=== PATIENT | female | born 1960 | race Caucasian/White ===

== ENCOUNTER 2023-09-01 13:14 | Outpatient (OUT) | payer BC, MEDICAID, SELFPAY ==
--- NOTE | 2023-09-01 13:18 | MM_ITS ---
Patient Name: АНДРЕЙ OSBORNE MR#: [id number] : 1960 Exam Date: 09/01/2023 Ordering Doctor: MRS. Blanca Bush NP RADIOLOGY REPORT PROCEDURE: MM TOMOSYNTHESIS SCREENING BI COMPARISON: MG MAMM RT DIAG FU, 04/11/2020. MG MAMM SCREEN 3D ALEXA CAD, 02/17/2022. INDICATIONS: Screening Calculator Name NCI Breast Cancer Risk Assessment Tool 5 Year Breast Cancer Risk 1.70% Lifetime Breast Cancer Risk 6.30% Personal Breast Cancer No Personal Ovarian Cancer No Treatments None Family Cancers Mother with liver cancer at age 82. LOCATION: [facility] BREAST COMPOSITION: Heterogeneously dense,which may obscure small masses. FINDINGS: DIAGNOSTIC CATEGORY 2--BENIGN FINDING. NO CHANGE FROM COMPARISON. Scattered benign-appearing calcifications are present. Scattered benign-appearing lymph nodes are present. RIGHT BREAST: No significant suspicious finding. Scattered benign-appearing nodules are present. LEFT BREAST: No significant suspicious finding. RECOMMENDATIONS: ROUTINE MAMMOGRAM AND CLINICAL EVALUATION IN 12 MONTHS. PLEASE NOTE: A NORMAL MAMMOGRAM DOES NOT EXCLUDE THE POSSIBILITY OF BREAST CANCER. A CLINICALLY SUSPICIOUS PALPABLE LUMP SHOULD BE BIOPSIED. Dictated by: James Friedman MD on 09/01/2023 at 14:16 Approved by: James Friedman MD on 09/01/2023 at 14:17
== END 2023-09-01 13:15 | disposition home or self-care (01) ==
LOC: MAMMO 13:14
PROVIDERS: PCP Internal Medicine; Visit Provider Nurse Practitioner Family
DX: Z12.31 Encounter for screening mammogram for malignant neoplasm of breast (principal); Z80.8 Family history of malignant neoplasm of other organs or systems
CPT/HCPCS: 77063; 77067

== ENCOUNTER 2024-01-04 12:44 | Outpatient (OUT) | payer MEDICARE, MEDICAID, SELFPAY ==
--- NOTE | 2024-01-04 13:11 | XR_ITS ---
[address] [address] Patient Name: АНДРЕЙ OSBORNE MRN: [id number] date: 1960 Sex: F Assigned Patient Location: [facility] Current Patient Location: Accession/Order Number: [id number] Exam Date: 01/04/2024 13:00 Report Date: 01/05/2024 10:09 At the request of: MONICA MOSS Procedure: XR DEXA axial skeleton EXAMINATION: XR DEXA axial skeleton HISTORY: Estrogen Deficiency E28.39 COMPARISON: No relevant comparison available. TECHNIQUE: Dual-energy X-ray absorptiometry (DXA) was performed. FINDINGS: SPINE ANALYSIS: Average bone mineral density is 1.167 g/cm2. T-score (standard deviation relative to young adult mean): -0.1 . HIP ANALYSIS: Lowest bone mineral density is within the right femoral neck, 0.962 g/cm2. T-score (standard deviation relative to young adult mean): -0.5 . XR/XR DEXA axial skeleton IMPRESSION: [employer] Classification: Normal - Low Fracture Risk FRAX: Electronically authenticated by: JUDY DAN Date: 01/05/2024 10:09
== END 2024-01-04 12:45 | disposition home or self-care (01) ==
LOC: RAD 12:44
PROVIDERS: PCP Internal Medicine; Visit Provider Internal Medicine
DX: E28.39 Other primary ovarian failure (principal)
CPT/HCPCS: 77080

== ENCOUNTER 2025-01-10 12:48 | Outpatient (OUT) | payer MEDICARE, MEDICAID, SELFPAY ==
--- NOTE | 2025-01-10 12:50 | MM_ITS ---
Patient Name: АНДРЕЙ OSBORNE MR#: [id number] : 1960 Exam Date: 01/10/2025 Ordering Doctor: DR MONICA MOSS M.D. RADIOLOGY REPORT PROCEDURE: MM TOMOSYNTHESIS SCREENING BI COMPARISON: MM TOMOSYNTHESIS SCREENING BI, 09/01/2023. MG MAMM SCREEN 3D ALEXA CAD, 02/17/2022. MG MAMM SCREEN ALEXA W CAD, 04/04/2020. INDICATIONS: Screening Calculator Name NCI Breast Cancer Risk Assessment Tool 5 Year Breast Cancer Risk 1.70% Lifetime Breast Cancer Risk 6.10% Personal Breast Cancer No Personal Ovarian Cancer No Treatments None Family Cancers Mother with liver cancer at age 82. LOCATION: [facility] BREAST COMPOSITION: There are scattered areas of fibroglandular density. FINDINGS: RIGHT BREAST: No significant suspicious finding. Benign-appearing lymph nodes are present. Similar focal asymmetries are present. Benign-appearing calcifications are present. LEFT BREAST: No significant suspicious finding. Benign-appearing lymph nodes are present. Similar focal asymmetries are present. Benign-appearing calcifications are present. DIAGNOSTIC CATEGORY 2--BENIGN FINDING: RECOMMENDATIONS: ROUTINE MAMMOGRAM AND CLINICAL EVALUATION IN 12 MONTHS. PLEASE NOTE: A NORMAL MAMMOGRAM DOES NOT EXCLUDE THE POSSIBILITY OF BREAST CANCER. A CLINICALLY SUSPICIOUS PALPABLE LUMP SHOULD BE BIOPSIED. Dictated by: Ramsey Alaniz MD on 01/10/2025 at 13:29 Approved by: Ramsey Alaniz MD on 01/10/2025 at 13:33
== END 2025-01-10 12:49 | disposition home or self-care (01) ==
LOC: MAMMO 12:48
PROVIDERS: PCP Internal Medicine; Visit Provider Internal Medicine
DX: Z12.31 Encounter for screening mammogram for malignant neoplasm of breast (principal); Z80.8 Family history of malignant neoplasm of other organs or systems
CPT/HCPCS: 77063; 77067

== ENCOUNTER 2025-02-20 14:34 | Emergency (ER) | payer MEDICARE, MEDICAID, SELFPAY ==
--- OUTSIDE RECORDS SUMMARY | 2024-09-12 09:00 | XMS_ITS ---
Author Organization [facility] es Address [address] [place] [address] Care Team Providers Care Cloth Washer Back Tender Name Role Phone Queta Davenport Primary Care Provider Nia Fontanez Unavailable [phone] REASON FOR VISIT SRP Encounters Encounter Location Date Provider Diagnosis [address] [place] [address] 09/12/2024 Nia Oliva Plan Of Treatment No Information Progress Notes * АНДРЕЙ OSBORNE ADOB:[birth year] (65 yo F)Acc No.[id number]:09/12/2024 Patient: Jennifer GORMAN АНДРЕЙ Dakotah Provider: Leander OLIVA DDS :1960 A ge:64 Y S ex:Female Date:09/12/2024 Address:[address] [place], [place] [id number] Pcp:Queta Davenport Subjective: * Chief Complaints: * 1 . SRP. * Medical History: Objective: * Vitals: Assessment: Plan: * Treatment: * Images: * Electronic signature of Rhea Oliva DDS on 02/20/2025 at 01:04 PM EDT Sign off status: Pending * Provider: Leander OLIVA DDS Date: 09/12/2024 Generated for Landoni ng/Fabridgerg/eTransmitting on: 02/20/2025 01:04 PM EDT
--- OUTSIDE RECORDS SUMMARY | 2024-10-17 08:15 | XMS_ITS ---
Author Organization [facility] es Address [address] [place] [address] Care Team Providers Care Principal Java Developer Name Role Phone Queta Davenport Primary Care Provider Nia Fontanez Unavailable Yue Zuñiga Unavailable [phone] REASON FOR VISIT DENTAL @ 1:00 Encounters Encounter Location Date Provider [facility] [address] [place] [address] 10/17/2024 Yue Zuñiga Plan Of Treatment No Information Progress Notes * АНДРЕЙ OSBORNE ADOB:[birth year] (65 yo F)Acc No.[id number]:10/17/2024 Patient: АНДРЕЙ ONEILL Provider: Dakotah Hinson :1960 A ge:64 Y S ex:Female Date:10/17/2024 Address:[address] [place], [place] [id number] Pcp:Queta Davenport Subjective: * Chief Complaints: * 1 . DENTAL @ 1:00. * Medical History: Objective: * Vitals: Assessment: Plan: * Treatment: * Images: * Electronic signature of Rob Zuñiga CNP on 02/20/2025 at 01:04 PM EDT Sign off status: Pending * Provider: Dakotah Hinson Date: 10/17/2024 Generated for Landoni eileen/Daljit/eTransmjuan on: 0 02/20/2025 01:04 PM EDT
--- OUTSIDE RECORDS SUMMARY | 2024-10-17 09:00 | XMS_ITS ---
Author Organization [facility] es Address [address] [place] [address] Care Team Providers Care Sports Medicine Physician Name Role Phone Queta Davenport Primary Care Provider [phone] Nia Fontanez Unavailable REASON FOR VISIT FILLING HAS TRANSPORTATION Encounters Encounter Location Date Provider Diagnosis [place] [address] [place] [address] 10/17/2024 Queta Davenport Plan Of Treatment No Information Progress Notes * АНДРЕЙ OSBORNE ADOB:[birth year] (65 yo F)Acc No.[id number]:10/17/2024 Patient: АНДРЕЙ ONEILL Provider: Dakotah Davenport DDS :1960 A ge:64 Y S ex:Female Date:10/17/2024 Address:[address] [place], [place] [phone] Subjective: * Chief Complaints: * 1 . FILLING HAS TRANSPORTATION. * Medical History: Objective: * Vitals: Assessment: Plan: * Treatment: * Images: * Electronic signature of Mariia Davenport DDS on 02/20/2025 at 01:04 PM EDT Sign off status: Pending * Provider: Dakotah Davenport DDS Date: 10/17/2024 Generated for Marybel arellano/Daljit/Blake on: 02/20/2025 01:04 PM EDT
[2025-02-20] VITALS (22 sets, daily range): BP systolic 114–167; BP diastolic 72–90; PULSE 61–81; TEMP 36.6; O2SAT 91–98; BMI 39.2
--- OUTSIDE RECORDS SUMMARY | 2025-02-20 13:15 | XMS_ITS | Encounter Summary ---
Author Organization [facility] Address [address] [place] [address] Care Team Providers Care Landscaping Crew Leader Name Role Phone Art López MD Primary Care Provider [phone] Art López MD Unavailable [phone] Encounter Details Date Type Department Care Team (Late st Contact Info) Description 02/20/2025 1:15 PM EDT [facility] [address] [facility] [address] [place] [phone] Art López MD [address] [facility] [address] [place], [place] [id number] Acute intractable headache, unspecified headache type (Primary Dx); Chest discomfort; Type 2 diabetes mellitus with hyperglycemia, with long-term current use of insulin (HCC); Diabetic polyneuropathy associated with type 2 diabetes mellitus (HCC); Hepatic steatosis Social History Tobacco Use Types Packs/Day Years Used Date Smoking Tobacco: Never Smokeless Tobacco: Never Tobacco Cessation:Counseling Given: Yes Alcohol Use Standard Drinks/Week Comments Yes 0 (1 standard drink = 0.6 oz pur e alcohol) 1-2 drinks, 2-3 times a week. PHQ-2 Answer Date Recorded Patient Health Questionnaire-2 Score 0 02/20/2025 Comments Unknown Sex and Gender Information Value Date Recorded Sex Assigned at Not on file Legal Sex Female 8:27 PM EDT Gender Identity Not on file Sexual Orientation Not on file documented as of this encounter Last Filed Vital Signs Vital Sign Reading Time Taken Comments Blood Pressure 136/78 02/20/2025 1:21 PM EDT Pulse 66 02/20/2025 1:21 PM EDT Temperature - - Respiratory Rate 16 02/20/2025 1:21 PM EDT Oxygen Saturation 97% 02/20/2025 1:21 PM EDT Inhaled Oxygen Concentration - - Weight 114 kg (252 lb) 02/20/2025 1:21 PM EDT Height 170.2 cm (5' 7 ) 02/20/2025 1:21 PM EDT Body Mass Index 39.47 02/20/2025 1:21 PM EDT documented in this encounter Functional Status * Over the past 2 weeks, how often have you been bothered by any of the following problems? Question Answer Date of Assessment Author Little interest or pleasure in doing things Not at all 02/20/2025 1:15 PM EDT VIRY TAN Feeling down, depressed, or hopeless Not at all 10/2024 1:15 PM EDT VIRY TAN Patient Health Questionnaire-2 Score 0 10/2024 1:15 PM EDT VIRY TAN documented as of this encounter Progress Notes * Art López MD - 02/20/2025 1:15 PM EDT Subjective Patient ID: Jaclyn Lee is a 65 y.o. female who presents for headaches. Jaclyn presents today for a bad headache that has been going for over a week. She has tried OTC tylenol and Motrin. She has vision problems as well. She feels like the pressure in her head is going to blow. Over the past 2 weeks, how often have you been bothered by any of the following problems? Little interest or pleasure in doing things: Not at all Feeling down, depressed, or hopeless: Not at all Patient Health Questionnaire-2 Score: 0 Current Outpatient Medications on File Prior to Visit Medication Sig Dispense Refill aspirin (Aspirin Low Dose) 81 MG EC tablet TAKE 1 TABLET BY MOUTH EVERY DAY 100 tablet 3 atorvastatin (Lipitor) 40 MG tablet TAKE 1 TABLET BY MOUTH EVERY DAY FOR 100 DAYS 100 tablet 4 Blood Glucose Monitoring Suppl (ONE TOUCH ULTRA 2) w/Device kit USE TO TEST ONCE DAILY cholecalciferol (Vitamin D-3) 25 MCG (1000 UT) tablet Take 1,000 Units by mouth 1 (one) time each day at the same time. empagliflozin (Jardiance) 25 MG TAKE 1 TABLET BY MOUTH EVERY DAY 100 tablet 3 famotidine (Pepcid) 20 MG tablet TAKE 1 TABLET (20 MG) BY MOUTH IN THE MORNING AND BEFORE BEDTIME 180 tablet 11 insulin glargine (Toujeo SoloStar) 300 UNIT/ML injection INJECT 36 UNITS SUBCUTANEOUSLY ONCE DAILY AT THE SAME TIME 9 mL 4 insulin pen needle (BD Pen Needle Ermelinda U/F) 32G x 4 mm misc USE TO INJECT TWICE A DAY 200 each 3 ketoconazole (NIZOral) 200 MG tablet Take 1 tablet (200 mg) by mouth Daily 7 tablet 3 Lancets (OneTouch Delica Plus Loqdan10T) misc DIRECTED DAILY 30 DAYS metoprolol succinate XL (Toprol-XL) 50 MG 24 hr tablet TAKE 1 TABLET BY MOUTH EVERY DAY 100 tablet 3 Multiple Vitamin (Multivitamin Adult) tablet as directed Orally Nptgwirulq-ldVGKEXopy-CDYN 40-5-25 MG tablet TAKE 1 TABLET BY MOUTH EVERY DAY 100 tablet 3 omeprazole (PriLOSEC) [address] capsule TAKE 1 CAPSULE BY MOUTH 30 MINUTES BEFORE MORNING MEAL 100 capsule 3 Cerona NetworksTouch Ultra test strip USE TO TEST ONCE DAILY 100 strip 2 Tirzepatide (Mounjaro) 7.5 MG/0.5ML solution auto-injector Inject 7.5 mg under the skin 1 (one) time per week 2 mL 11 No current facility-administered medications on file prior to visit. I have reviewed and reconciled the history and medication list with the patient today. Allergies Allergen Reactions Gabapentin Unknown Metformin Hcl Other Reaction(s): Nightmares Ropinirole Other Reaction(s): Unknown Social History Tobacco Use Smoking status: Never Smokeless tobacco: Never Vaping Use Vaping status: Never Used Substance Use Topics Alcohol use: Yes Comment: 1-2 drinks, 2-3 times a week. Drug use: Never Family History Problem Relation Name Age of Onset Hypertension Mother Heart disease Mother Stroke Mother Diabetes Father Hypertension Father Heart disease Father Past Medical History: Diagnosis Date Diabetes (HCC) GERD (gastroesophageal reflux disease) HTN (hypertension) Stroke (HCC) Past Surgical History: Procedure Laterality Date HYSTERECTOMY LEG SURGERY Left 02/14/2021 TOE AMPUTATION Left 05/05/2020 2nd and 3rd TONSILLECTOMY TOTAL KNEE ARTHROPLASTY Right 11/16/2018 Visit Vitals BP 136/78 Pulse 66 Resp 16 Ht 5' 7 Wt 252 lb SpO2 97% BMI 39.47 kg/m?? Smoking Status Never BSA 2.32 m?? Review of Systems Objective Physical Exam Constitutional: Appearance: Normal appearance. HENT: Head: Normocephalic and atraumatic. Cardiovascular: Rate and Rhythm: Normal rate and regular rhythm. Heart sounds: Normal heart sounds. No murmur heard. Pulmonary: Effort: Pulmonary effort is normal. Breath sounds: Normal breath sounds. No wheezing, rhonchi or rales. Abdominal: General: Abdomen is flat. Bowel sounds are normal. There is no distension. Tenderness: There is no abdominal tenderness. Musculoskeletal: Right lower leg: No edema. Left lower leg: No edema. Neurological: General: No focal deficit present. Mental Status: She is alert and oriented to person, place, and time. Cranial Nerves: Cranial nerves 2-12 are intact. Sensory: Sensation is intact. Motor: Motor function is intact. Gait: Gait is intact. Comments: Baseline head and neck tremor, unchanged Psychiatric: Mood and Affect: Mood normal. Thought Content: Thought content normal. Documentation on 01/24/2025 Component Date Value Ref Range Status RESULTS 01/23/2025 ndr Final Office Visit on 12/29/2024 Component Date Value Ref Range Status CREATININE, RANDOM URINE 01/04/2025 54 20 - 275 mg/dL Final ALBUMIN, URINE 01/04/2025 <0.2 See Note: mg/dL Final Comment: Reference Range: Reference Range Not established ALBUMIN/CREATININE RATIO, RANDOM U* 01/04/2025 NOTE <30 mg/g creat Final Comment: NOTE: The urine albumin value is less than 0.2 mg/dL therefore we are unable to calculate excretion and/or creatinine ratio. The ADA defines abnormalities in albumin excretion as follows: Albuminuria Category Result (mg/g creatinine) Normal to Mildly increased <30 Moderately increased 30-299 Severely increased > OR = 300 The ADA recommends that at least two of three specimens collected within a 3-6 month period be abnormal before considering a patient to be within a diagnostic category. WHITE BLOOD CELL COUNT 01/04/2025 5.4 3.8 - 10.8 Thousand/uL Final RED BLOOD CELL COUNT 01/04/2025 4.23 3.80 - 5.10 Million/uL Final HEMOGLOBIN 01/04/2025 14.4 11.7 - 15.5 g/dL Final HEMATOCRIT 01/04/2025 44.2 35.0 - 45.0 % Final MCV 01/04/2025 104.5 (H) 80.0 - 100.0 fL Final MCH 01/04/2025 34.0 (H) 27.0 - 33.0 pg Final MCHC 01/04/2025 32.6 32.0 - 36.0 g/dL Final Comment: For adults, a slight decrease in the calculated MCHC value (in the range of 30 to 32 g/dL) is most likely not clinically significant; however, it should be interpreted with caution in correlation with other red cell parameters and the patient's clinical condition. RDW 01/04/2025 12.2 11.0 - 15.0 % Final PLATELET COUNT 01/04/2025 174 140 - 400 Thousand/uL Final MPV 01/04/2025 9.7 7.5 - 12.5 fL Final ABSOLUTE NEUTROPHILS 01/04/2025 2,608 1,500 - 7,800 cells/uL Final ABSOLUTE LYMPHOCYTES 01/04/2025 1,825 850 - 3,900 cells/uL Final ABSOLUTE MONOCYTES 01/04/2025 697 200 - 950 cells/uL Final ABSOLUTE EOSINOPHILS 01/04/2025 238 15 - 500 cells/uL Final ABSOLUTE BASOPHILS 01/04/2025 32 0 - 200 cells/uL Final NEUTROPHILS 01/04/2025 48.3 % Final LYMPHOCYTES 01/04/2025 33.8 % Final MONOCYTES 01/04/2025 12.9 % Final EOSINOPHILS 01/04/2025 4.4 % Final BASOPHILS 01/04/2025 0.6 % Final CHOLESTEROL, TOTAL 01/04/2025 144 <200 mg/dL Final HDL CHOLESTEROL 01/04/2025 41 (L) > OR = 50 mg/dL Final TRIGLYCERIDES 01/04/2025 147 <150 mg/dL Final LDL CHOLESTEROL 01/04/2025 79 mg/dL (calc) Final Comment: Reference range: <100 Desirable range <100 mg/dL for primary prevention; <70 mg/dL for patients with CHD or diabetic patients with > or = 2 CHD risk factors. LDL-C is now calculated using the Johnnie-Abel calculation, which is a validated novel method providing better accuracy than the Friedewald equation in the estimation of LDL-C. Johnnie REYNOSO et al. JEAN-PIERRE. 2013;310(19): 1302-5672 (http://education.Evomail.com/faq/BLZ138) CHOL/HDLC RATIO 01/04/2025 3.5 <5.0 (calc) Final NON HDL CHOLESTEROL 01/04/2025 103 <130 mg/dL (calc) Final Comment: For patients with diabetes plus 1 major ASCVD risk factor, treating to a non-HDL-C goal of <100 mg/dL (LDL-C of <70 mg/dL) is considered a therapeutic option. Glucose 01/04/2025 155 (H) 65 - 99 mg/dL Final Comment: Fasting reference interval For someone without known diabetes, a glucose value >125 mg/dL indicates that they may have diabetes and this should be confirmed with a follow-up test. BUN 01/04/2025 25 7 - 25 mg/dL Final Creatinine 01/04/2025 0.76 0.50 - 1.05 mg/dL Final EGFR 01/04/2025 86 > OR = 60 mL/min/1.73m2 Final BUN/CREATININE RATIO 01/04/2025 SEE NOTE: 6 - (calc) Final Comment: Not Reported: BUN and Creatinine are within reference range. Sodium 01/04/2025 138 135 - 146 mmol/L Final Potassium, Bld 01/04/2025 4.0 3.5 - 5.3 mmol/L Final Chloride 01/04/2025 99 98 - 110 mmol/L Final Carbon Dioxide 01/04/2025 29 20 - 32 mmol/L Final Calcium 01/04/2025 11.4 (H) 8.6 - 10.4 mg/dL Final PROTEIN, TOTAL 01/04/2025 7.8 6.1 - 8.1 g/dL Final ALBUMIN 01/04/2025 4.8 3.6 - 5.1 g/dL Final GLOBULIN 01/04/2025 3.0 1.9 - 3.7 g/dL (calc) Final ALBUMIN/GLOBULIN RATIO 01/04/2025 1.6 1.0 - 2.5 (calc) Final BILIRUBIN, TOTAL 01/04/2025 0.6 0.2 - 1.2 mg/dL Final ALKALINE PHOSPHATASE 01/04/2025 81 37 - 153 U/L Final AST 01/04/2025 42 (H) 10 - 35 U/L Final ALT 01/04/2025 54 (H) 6 - 29 U/L Final TSH W/REFLEX TO FT4 01/04/2025 2.37 0.40 - 4.50 mIU/L Final Hemoglobin A1C 12/29/2024 6.2 Final Assessment/Plan Diagnoses and all orders for this visit: Acute intractable headache, unspecified headache type - Of 1 week duration, 04/28 . No prior history of same. Also reports visual changes. - Patient was sent to the ER for further evaluation and treatment. The ER was called with a report of patient's condition and history. Medical records will be sent as well. Chest discomfort - EKG was essentially normal Type 2 diabetes mellitus with hyperglycemia, with long-term current use of insulin (HCC) Diabetic polyneuropathy associated with type 2 diabetes mellitus (HCC) Hepatic steatosis Follow up in about 1 week (around 02/27/2025). documented in this encounter Plan of Treatment Upcoming Encounters Date Type Department Care Team (Late st Contact Info) Description 03/06/2025 1:00 PM EDT Clinical Support [facility] [place] [facility] [address] [facility] [address] [place] [phone] Aide Arita, [facility] [address] [facility] [place] [address] 03/08/2025 1:10 PM EDT Office Visit [facility] [place] [facility] [address] [facility] [address] [place] [address] Svetlana De Luna MD [address] [facility] [address] [place] [address] 04/03/2025 11:30 AM EDT Office Visit [facility] [place] [facility] [address] [facility] [address] [place] [address] Art López MD [address] [facility] [address] [place] [address] documented as of this encounter Visit Diagnoses Diagnosis Acute intractable headache, unspecified headache type- Primary Chest discomfort Other chest pain Type 2 diabetes mellitus with hyperglycemia, with long-term current use of insulin (HCC) Diabetic polyneuropathy associated with type 2 diabetes mellitus (HCC) Hepatic steatosis Other chronic nonalcoholic liver disease documented in this encounter Care Teams Landscaping Crew Leader Relationship Specialty Start Date End Date Art López MD [address] [facility] [address] [place] [address] PCP - General Internal Medicine 02/18/23 Art López MD [address] [facility] [address] [place] [address] PCP - Clemencia SHRESTHA 03/20/23 documented as of this encounter
--- OUTSIDE RECORDS SUMMARY | 2025-02-20 14:41 | XMS_ITS | Encounter Summary ---
Author Organization [facility] Address [address] [place] [address] Care Team Providers Care Creel Hand Name Role Phone Art López MD Unavailable [phone] Art López MD Primary Care Provider [phone] Art López MD Unavailable [phone] Encounter Details Date Type Department Care Team (Late Contact Info) Description 09/01/2023 Clinisync Result Encounter [facility] External Department Unsolicited Blanca Bush, HOT MILL OBSERVER [address] [place] [address] Social History Tobacco Use Types Packs/Day Years Used Date Smoking Tobacco: Never Smokeless Tobacco: Never Alcohol Use Standard Drinks/Week Comments Yes 0 (1 standard drink = 0.6 oz pur e alcohol) 1-2 drinks, 2-3 times a week. Comments Unknown Sex and Gender Information Value Date Recorded Sex Assigned at Not on file Legal Sex Female 8:27 PM EDT Gender Identity Not on file Sexual Orientation Not on file documented as of this encounter Plan of Treatment Upcoming Encounters Date Type Department Care Team (Late Contact Info) Description 03/06/2025 1:00 PM EDT Clinical Support [facility] [place] [facility] [address] [place] [address] Aide Arita, [facility] [address] [place] [address] 03/08/2025 1:10 PM EDT Office Visit [facility] [place] [facility] [address] [place] [address] Svetlana De Luna MD [address] [place] [address] 04/03/2025 11:30 AM EDT Office Visit [facility] [place] [facility]amp 112 [facility] 110 [place] [address] Art López MD 112 [facility] [address] [place] [address] documented as of this encounter Procedures Procedure Name Priority Date/Time Associated Diagnosis Comments MM TOMOSYNTHESIS SCREENING BI 09/01/2023 2:18 PM EST documented in this encounter Results * MM TOMOSYNTHESIS SCREENING BI (09/01/2023 2:18 PM EST) Anatomical Region Laterality Modality Other 09/01/2023 2:18 PM EST Narrative 09/01/2023 2:19 [place] [address] Mammography Report Signed Patient: Андрей Osborne MR#: [id number] : 1960 Acct:[id number] Age/Sex: 63 / F ADM Date: 09/01/23 Loc: MAMMO Attending Dr: Blanca Bush NP Ordering Physician: Blanca Bush NP Results: Date of Service: 09/01/23 Follow Up: Procedure(s): MM tomosynthesis screening BI Accession Number(s): [id number] cc: ART LÓPEZ ; Blanca Bush NP Patient Name: АНДРЕЙ OSBORNE MR#: [id number] : 1960 Exam Date: 09/01/2023 Ordering Doctor: MRS. Blanca Bush HOT MILL OBSERVER RADIOLOGY REPORT PROCEDURE: MM TOMOSYNTHESIS SCREENING BI COMPARISON: MG MAMM RT DIAG FU, 04/11/2020. MG MAMM SCREEN 3D ALEXA CAD, 02/17/2022. INDICATIONS: Screening Calculator Name NCI Breast Cancer Risk Assessment Tool 5 Year Breast Cancer Risk 1.70% Lifetime Breast Cancer Risk 6.30% Personal Breast Cancer No Personal Ovarian Cancer No Treatments None Family Cancers Mother with liver cancer at age 82. LOCATION: [facility] BREAST COMPOSITION: Heterogeneously dense,which may obscure small masses. FINDINGS: DIAGNOSTIC CATEGORY 2--BENIGN FINDING. NO CHANGE FROM COMPARISON. Scattered benign-appearing calcifications are present. Scattered benign-appearing lymph nodes are present. RIGHT BREAST: No significant suspicious finding. Scattered benign-appearing nodules are present. LEFT BREAST: No significant suspicious finding. RECOMMENDATIONS: ROUTINE MAMMOGRAM AND CLINICAL EVALUATION IN 12 MONTHS. PLEASE NOTE: A NORMAL MAMMOGRAM DOES NOT EXCLUDE THE POSSIBILITY OF BREAST CANCER. A CLINICALLY SUSPICIOUS PALPABLE LUMP SHOULD BE BIOPSIED. Dictated by: James Friedman MD on 09/01/2023 at 14:16 Approved by: James Friedman MD on 09/01/2023 at 14:17 Dictated By: James Friedman M.D. Signed By: 09/01/23 1419 DD/ 1418 TD/TT: Assistant Commissioner: Procedure Note Radiology, Radiologist, - 09/01/2023 [place] [address] Mammography Report Signed Patient: Андрей Osborne [facility]#: [id number] : 1960cct:[id number] Age/Sex: 63 / FADM Date: 09/01/23 Loc: MAMMO Attending Dr: Blanca Bush NP Ordering Physician: Blanca Bush NPResults: Date of Service: 09/01/23Follow Up: Procedure(s): MM tomosynthesis screening BI Accession Number(s): [id number] cc: ART LÓPEZ ; Blanca Bush NP Patient Name: АНДРЕЙ OSBORNE MR#: [id number] : 1960 Exam Date: 09/01/2023 Ordering Doctor: MRS. Blanca Bush NP RADIOLOGY REPORT PROCEDURE: MM TOMOSYNTHESIS SCREENING BI COMPARISON: MG MAMM RT DIAG FU, 04/11/2020. MG MAMM SCREEN 3D ALEXA CAD, 02/17/2022. INDICATIONS: Screening Calculator Name NCI Breast Cancer Risk Assessment Tool 5 Year Breast Cancer Risk 1.70% Lifetime Breast Cancer Risk 6.30% Personal Breast Cancer No Personal Ovarian Cancer No Treatments None Family Cancers Mother with liver cancer at age 82. LOCATION: [facility] BREAST COMPOSITION: Heterogeneously dense,which may obscure smallmasses. FINDINGS: DIAGNOSTIC CATEGORY 2--BENIGN FINDING. NO CHANGE FROM COMPARISON.Scattered benign-appearing calcifications are present. Scattered benign-appearinglymph nodes are present. RIGHT BREAST: No significant suspicious finding. Scatteredbenign-appearing nodules are present. LEFT BREAST: No significant suspicious finding. RECOMMENDATIONS: ROUTINE MAMMOGRAM AND CLINICAL EVALUATION IN 12 MONTHS. PLEASE NOTE: A NORMAL MAMMOGRAM DOES NOT EXCLUDE THE POSSIBILITY OFBREAST CANCER. A CLINICALLY SUSPICIOUS PALPABLE LUMP SHOULD BE BIOPSIED. Dictated by: James Friedman MD on 09/01/2023 at 14:16 Approved by: James Friedman MD on 09/01/2023 at 14:17 Dictated By: James Friedman M.D. Signed By:09/01/23 1419 DD/ 1418 TD/TT: Assistant Commissioner: Blanca Bush HOT MILL OBSERVER [facility] Final Result documented in this encounter Visit Diagnoses Not on filedocumented in this encounter Care Teams Creel Hand Relationship Specialty Start Date End Date Art López MD [address] [facility] 110 [place] [address] PCP - FFS [facility] 10/18/22 10/18/23 Art López MD [address] [facility] 110 [place] [address] PCP - General Internal Medicine 02/18/23 Art López MD [address] [facility] 110 [place] [address] PCP - Clemencia SHRESTHA 03/20/23 documented as of this encounter
--- OUTSIDE RECORDS SUMMARY | 2025-02-20 14:41 | XMS_ITS | Encounter Summary ---
Author Organization [facility] Address [address] [facility] [place] [address] Care Team Providers Care Ocularist Name Role Phone Art López MD Primary Care Provider [phone] Art López MD Unavailable [phone] Encounter Details Date Type Department Care Team ([facility] Contact Info) Description 12/30/2024 Abstract [facility] [place] [facility] [address] [facility] 110 [place] [address] Art López MD [address] [facility] 110 [place], [place] [address] Social History Tobacco Use Types Packs/Day Years Used Date Smoking Tobacco: Never Smokeless Tobacco: Never Alcohol Use Standard Drinks/Week Comments Yes 0 (1 standard drink = 0.6 oz pur e alcohol) 1-2 drinks, 2-3 times a week. PHQ-2 Answer Date Recorded Patient Health Questionnaire-2 Score 0 12/29/2024 Comments Unknown Sex and Gender Information Value Date Recorded Sex Assigned at Not on file Legal Sex Female 8:27 PM EDT Gender Identity Not on file Sexual Orientation Not on file documented as of this encounter Plan of Treatment Upcoming Encounters Date Type Department Care Team (Late Contact Info) Description 03/06/2025 1:00 PM EDT Clinical Support [facility] [address] [place] [place] [address] Aide Arita, [facility] [address] [place] [address] 03/08/2025 1:10 PM EDT Office Visit [facility] [address] [place] [address] Svetlana De Luna MD [address] [facility] 130 [place] [address] 04/03/2025 11:30 AM EDT Office Visit [facility] [place] Raissa [address] [facility] 110 [place] [address] Art López MD [address] [facility] [address] [place] [address] documented as of this encounter Visit Diagnoses Not on filedocumented in this encounter Care Teams Ocularist Relationship Specialty Start Date End Date Art López MD [address] [facility] 110 [place] [address] PCP - General Internal Medicine 02/18/23 Art López MD [address] [facility] [address] [place] [address] PCP - Clemencia SHRESTHA 03/20/23 documented as of this encounter
--- OUTSIDE RECORDS SUMMARY | 2025-02-20 14:41 | XMS_ITS | Encounter Summary ---
Author Organization [facility] Address [address] [facility] [address] Care Team Providers Care Post Form Remover Name Role Phone Art López MD Primary Care Provider [phone] Art López MD Unavailable [phone] Encounter Details Date Type Department Care Team ([facility] Contact Info) Description 12/01/2023 Abstract [facility] [place] [facility] [address] [facility] 110 [place] [address] Art López MD [address] [facility] 110 [place], [place] [phone] Social History Tobacco Use Types Packs/Day Years Used Date Smoking Tobacco: Never Smokeless Tobacco: Never Alcohol Use Standard Drinks/Week Comments Yes 0 (1 standard drink = 0.6 oz pur e alcohol) 1-2 drinks, 2-3 times a week. PHQ-2 Answer Date Recorded Patient Health Questionnaire-2 Score 0 11/27/2023 Comments Unknown Sex and Gender Information Value [...] Son Audiology [address] [place] [address] Aide Arita, [facility] [address] [place] [address] 03/08/2025 1:10 PM EDT Office Visit [facility] [address] [place] [address] Svetlana De Luna MD [address] [facility] [address] [place] [address] 04/03/2025 11:30 AM EDT Office Visit [facility] [place] Raissa [address] [facility] [address] [place] [address] Art López MD [address] [facility] [address] [place] [address] documented as of this encounter Visit Diagnoses Not on filedocumented in this encounter Care Teams Post Form Remover Relationship Specialty Start Date End Date Art López MD [address] [facility] 110 [place] [address] PCP - General Internal Medicine 02/18/23 Art López MD [address] [facility] [address] [place] [address] PCP - Clemencia SHRESTHA 03/20/23 documented as of this encounter
--- OUTSIDE RECORDS SUMMARY | 2025-02-20 14:41 | XMS_ITS | Encounter Summary ---
Author Organization [facility] Address [address] [place] [address] Care Team Providers Care Field Tech Name Role Phone Art López MD Unavailable [phone] Art López MD Primary Care Provider [phone] Art López MD Unavailable [phone] Encounter Details Date Type Department Care Team ([facility] Contact Info) Description 04/30/2023 Abstract [facility] [place] [facility] [address] [place] [address] Blanca Bush, SUPPORT ENGINEER [address] [place], [place] [address] Social History Tobacco Use Types Packs/Day Years Used Date Smoking Tobacco: Never Smokeless Tobacco: Never Tobacco Cessation:Counseling Given: Not Answered Alcohol Use Standard Drinks/Week Comments Yes 0 [...] Upcoming Encounters Date Type Department Care Team ([facility] Contact Info) Description 03/06/2025 1:00 PM EDT Clinical Support [facility] [place] [facility] [address] [place] [address] Aide Arita, [facility] [address] [place] [address] 03/08/2025 1:10 PM EDT Office Visit [facility] [place] [facility] [address] [place] [address] Svetlana De Luna MD [address] [place] [address] 04/03/2025 11:30 AM EDT Office Visit [facility] [place] Haji [address] [place] [address] Art López MD [address] [place] [address] documented as of this encounter Visit Diagnoses Not on filedocumented in this encounter Care Teams Field Tech Relationship Specialty Start Date End Date Art López MD [address] [place] [address] PCP - FFS [facility] 10/18/22 10/18/23 Art López MD [address] [place] [address] PCP - General Internal Medicine 02/18/23 Art López MD [address] [place] [address] PCP - Clemencia SHRESTHA 03/20/23 documented as of this encounter
--- OUTSIDE RECORDS SUMMARY | 2025-02-20 14:41 | XMS_ITS | Encounter Summary ---
Author Organization [facility] Address [address] [facility] [place] [address] Care Team Providers Care Web Art Director Name Role Phone Art López MD Primary Care Provider [phone] Art López MD Unavailable [phone] Encounter Details Date Type Department Care Team ([facility] Contact Info) Description 12/01/2023 Abstract [facility] [place] [facility] [address] [facility] 110 [place] [address] Art López MD [address] [facility] 110 [place], [place] [address] Social History Tobacco Use Types Packs/Day Years [...] Son Audiology [address] [place] [address] Aide Arita, [facility] [address] [place] [address] 03/08/2025 1:10 PM EDT Office Visit [facility] [address] [place] [address] Svetlana De Luna MD [address] [facility] 130 [place] [address] 04/03/2025 11:30 AM EDT Office Visit [facility] [place] Raissa [address] [facility] 110 [place] [address] Art López MD [address] [facility] 110 [place] [address] documented as of this encounter Visit Diagnoses Not on filedocumented in this encounter Care Teams Web Art Director Relationship Specialty Start Date End Date Art López MD [address] [facility] 110 [place] [address] PCP - General Internal Medicine 02/18/23 Art López MD [address] [facility] 110 [place] [address] PCP - Clemencia SHRESTHA 03/20/23 documented as of this encounter
--- OUTSIDE RECORDS SUMMARY | 2025-02-20 14:41 | XMS_ITS | Patient Health Record ---
Author Organization [facility] es Address [address] [place] [address] Care Team Providers Care Truer Pinion And Wheel Name Role Phone Queta Davenport Primary Care Provider Nia Fontanez Unavailable [phone] Yue Zuñiga Unavailable [phone] Aubrie Dubose Unavailable [phone] Reason For Referral No Information Encounters Encounter Location Date Provider Diagnosis [facility] [place] Services [address] [place] [address] 05/18/2024 Queta Davenport [address] [place] [address] 03/03/2024 Queta Davenport Encounter for dental examination and cleaning with abnormal findings Z01.21 ; Disturbances in tooth eruption K00.6 ; Other dental procedure status Z98.818 ; Dental caries on pit and fissure surface penetrating into dentin K02.52 ; Chronic gingivitis, plaque induced K05.10 ; Chronic periodontitis, generalized, slight K05.321 and Cracked tooth K03.81 [facility] [address] [place] [address] 07/08/2024 Queta Davenport Cracked tooth K03.81 [facility] [address] [place] [address] 06/24/2024 Queta Davenport Cracked tooth K03.81 [facility] [address] [place] [address] 06/24/2024 Yue Zuñiga Lack of access to transportation Z91.89 [facility] [address] [place] [address] 07/08/2024 Yue Zara Lack of access to transportation Z91.89 [address] [place] [address] 03/03/2024 Yue Mónicarrrebecca Lack of access to transportation Z91.89 [address] [place] [address] 05/18/2024 Yue Zara Lack of access to transportation Z91.89 [address] [place] [address] 05/18/2024 Aubrie Dubose Encounter for dental examination and cleaning with abnormal findings Z01.21 Assessments Encounter Date Diagnosis (ICD Code) Assessment Notes Treatment Notes Treatment Clinical Notes Section Notes 03/03/2024 Lack of access to transportation (ICD-10 - Z91.89) Pt transported to and from appointment 05/18/2024 Lack of access to transportation (ICD-10 - Z91.89) Pt transported to and from appointment 05/18/2024 Encounter for dental examination and cleaning with abnormal findings (ICD-10 - Z01.21) 06/24/2024 Lack of access to transportation (ICD-10 - Z91.89) Pt transported to and from appointment 06/24/2024 Cracked tooth (ICD-10 - K03.81) 07/08/2024 Lack of access to transportation (ICD-10 - Z91.89) Pt transported to and from appointment 07/08/2024 Cracked tooth (ICD-10 - K03.81) 03/03/2024 Encounter for dental examination and cleaning with abnormal findings (ICD-10 - Z01.21) 03/03/2024 Disturbances in tooth eruption (ICD-10 - K00.6) 03/03/2024 Other dental procedure status (ICD-10 - Z98.818) 03/03/2024 Dental caries on pit and fissure surface penetrating into dentin (ICD-10 - K02.52) 03/03/2024 Chronic gingivitis, plaque induced (ICD-10 - K05.10) 03/03/2024 Chronic periodontitis, generalized, slight (ICD-10 - K05.321) 03/03/2024 Cracked tooth (ICD-10 - K03.81) Plan Of Treatment No Information Insurance Providers Payer Name Payer Address Payer Phone Subscriber Number Group Number Insured Name Patient Relationship to Insured Coverage Start Date Coverage End Date [employer] MEDICAID SEC TO [facility] [address] [place] [phone] [id number] [place] Self - patient is the insured 4 MEDICARE CGS PART B [address] [address] MARIAN MCCARTNEY [phone] [id number] [place] Self - patient is the insured 4 [employer] MEDICARE ADVANTAGE [address] [place] [address] [id number] [place] Self - patient is the insured 4 [employer] [address] [address] [place] [address] [id number] [place] Self - patient is the insured 4
--- NOTE | 2025-02-20 14:42 | CT_ITS ---
The [address] [address] Patient Name: АНДРЕЙ OSBORNE MRN: [id number] date: 1960 Sex: F Assigned Patient Location: ER Current Patient Location: ER Accession/Order Number: [id number] Exam Date: 02/20/2025 15:33 Report Date: 02/20/2025 15:37 At the request of: PEPITO LAURA MD Procedure: CT head/brain wo con CT BRAIN WITHOUT CONTRAST: CLINICAL HISTORY: headache COMPARISON: None TECHNIQUE: Contiguous axial unenhanced images were obtained through the brain. This CT exam was performed using one or more following dose reduction techniques: Automated exposure control, adjustment of the mA and/or kV according to patient size, or use of iterative reconstruction technique. FINDINGS: There is no evidence of midline shift, intra or extra-axial fluid collection, hemorrhage or CT evidence of stroke. Cortical atrophy with chronic microvascular ischemic changes. Posterior fossa appears unremarkable. Visualized intraorbital contents demonstrate no acute findings. Visualized paranasal sinuses are clear. The surrounding soft tissues are normal. CT/CT head/brain wo con IMPRESSION: NO ACUTE INTRACRANIAL ABNORMALITY. Impression dictated by: Remi Lara Jr., D.O. 02/20/2025 3:37 PM Dictation Location: [place] [address] Electronically authenticated by: [id number] Y Date: 02/20/2025 15:37
--- NOTE | 2025-02-20 14:42 | ECG_ITS ---
The [facility] Test Date: 2025-02-20 Pat Name: АНДРЕЙ OSBORNE Department: Room: - Gender: Female Cell Feed Department Supervisor: : 1960 Requested By: 1854 Order Number: [id number] Reading MD: LILY RICHARDSON M.D. Measurements Intervals Orestes Rate: 66 P: 47 SC: 188 QRS: 84 QRSD: 84 T: 17 QT: 368 QTc: 382 Interpretive Statements 1100 Sinus rhythm 9110 normal ECG Compared to ECG 02/07/2021 11:13:34 ST (T wave) deviation no longer present Electronically Signed On 02-20-2025 18:26:20 EDT by LILY RICHARDSON M.D.
--- OUTSIDE RECORDS SUMMARY | 2025-02-20 14:42 | XMS_ITS | Encounter Summary ---
Author Organization [facility] Address [address] [place] [address] Care Team Providers Care Night Filler Name Role Phone Art López MD Primary Care Provider [phone] Art López MD Unavailable Encounter Details Date Type Department Care Team (Latest Contact Info) Description 02/20/2025 Travel Social History Tobacco Use Types Packs/Day Years [...] on file documented as of this encounter Functional Status * Over the [...] VIRY TAN documented as of this encounter Plan of Treatment Upcoming Encounters Date Type Department Care Team (Late st Contact Info) Description 03/06/2025 1:00 PM EDT Clinical Support [facility] [address] [place] [address] Aide Arita, [facility] [address] [facility] [place] [address] 03/08/2025 1:10 PM EDT Office Visit [facility] [place] [facility] [address] [place] [address] Svetlana De Luna MD [address] [place] [address] 04/03/2025 11:30 AM EDT Office Visit [facility] [place] [facility] [address] [place] [address] Art López MD [address] [place] [address] documented as of this encounter Visit Diagnoses Not on filedocumented in this encounter Care Teams Night Filler Relationship Specialty Start Date End Date Art López MD [address] [place] [address] PCP - General Internal Medicine 02/18/23 Art López MD [address] [place] [address] [place] [address] PCP - Clemencia SHRESTHA 03/20/23 documented as of this encounter
--- OUTSIDE RECORDS SUMMARY | 2025-02-20 14:42 | XMS_ITS | Clinical Summary ---
Author Organization [facility] tem Address [id number] [address] [place] [address] Care Team Providers Care Surgical Orderly Name Role Phone Art López MD Primary Care Provider [phone] Allergies Active Allergy Reactions Criticality Noted Date Comments Gabapentin 11/10/2018 Ropinirole 11/10/2018 Medications atorvastatin (LIPITOR) 40 mg tablet Take 40 mg by mouth daily. 12/17/2016 Active JARDIANCE 25 mg tablet Take 1 tablet by mouth once daily. 3 12/08/2016 Active metoprolol succinate XL (TOPROL-XL) 25 mg 24 hr tablet 12/17/2016 Act aniya olmesartan-amlod ipin-hcthiazid 40-5-25 mg tablet Take 1 tablet by mouth once daily. 1 11/24/2016 Active BD ULTRA-FINE MAHIN PEN NEEDLES 32 gauge x 5/32 needle 12/17/2016 Active ferrous sulfate 325 (65 FE) mg tablet Take 1 tablet by mouth daily. 0 10/27/2018 Active Active Problems Problem Noted Date Diagnosed Date Abnormal EKG 11/15/2018 Arthritis of right knee 11/15/2018 Family History Medical History Relation Name Comments Diabetes Father Heart disease Father Hypertension Father Diabetes Maternal Grandfather Heart disease Maternal Grandfather Kidney disease Maternal Grandfather Heart disease Maternal Grandmother Heart disease Mother Hypertension Mother Stroke Mother Diabetes Paternal Grandfather Heart disease Paternal Grandfather Kidney disease Paternal Grandfather Heart disease Paternal Grandmother Relation Name Status Comments Father Maternal Grandfather Maternal Grandmother Mother Paternal Grandfather Paternal Grandmother Social History Tobacco Use Types Packs/Day Years Used Date Smoking Tobacco: Former Cigarettes Q uit: 07/20/1979 Smokeless Tobacco: Never Alcohol Use Standard Drinks/Week Comments Yes 0 (1 standard drink = 0.6 oz pur e alcohol) SOCIAL Childcare Answer Date Recorded Childcare Unknown 12/29/2018 Employment Answer Date Recorded Employment Unknown 12/29/2018 Purpose - Life Answer Date Recorded Purpose and direction in life Unknown Comments No Sex and Gender Information Value Date Recorded Sex Assigned at Not on file Legal Sex Female 11:26 AM EDT Gender Identity Not on file Sexual Orientation Not on file Last Filed Vital Signs Vital Sign Reading Time Taken Comments Blood Pressure 149/75 11/18/2018 11:15 AM EDT Pulse 102 11/18/2018 11:15 AM EDT Temperature 36.8 C (98.2 F) 11/18/2018 11:15 AM EDT Respiratory Rate 24 11/18/2018 11:15 AM EDT Oxygen Saturation 94% 11/18/2018 11:15 AM EDT Inhaled Oxygen Concentration - - Weight 122 kg (268 lb 15.4 oz) 11/18/2018 11:00 AM EDT Height 167.6 cm (5' 6 ) 11/16/2018 3:57 PM EDT Body Mass Index 43.41 11/16/2018 3:57 PM EDT Plan of Treatment Health Maintenance Due Date Last Done Comments Depression Screening 1970 Tobacco Screening 1970 Adult BMI Screening 01/21/1976 DTaP,Tdap and Td Vaccines (1 - Tdap) 1977 Zoster (Shingles) Vaccine (1 of 2) 01/21/2008 Fall Risk Screening 2023 Influenza Vaccine 03/20/2025 Colonoscopy 12/11/2026 12/11/2016 Medical Devices Implanted Type Area Furnace Utility Operator Device Identifier Shelf Expiration Date Model / Serial / Lot Cmnt Bn Bio 40 Rpl [id number] - Sna - [id number] Implanted:Qty : 2 on 11/16/2018 by Noé Rojas Jr. DO at [facility] Cement Right: Knee [employer] 12/17/2022 [id number] / NA / [id number] Cmpt Fem F Kn Rt Lpsflx Gndr Rpl [id number] - Sna - [id number] Implanted:Qty : 1 on 11/16/2018 by Noé Rojas Jr., DO at [facility] Orthopedic Implant Right: Knee [employer] 06/18/2028 [id number] / NA / [id number] Ins Artc 5-6 E-F 12mm Kn Fx Rpl [id number] - Sna - [id number] Implanted:Qty : 1 on 11/16/2018 by Noé Rojas Jr., DO at [facility] Orthopedic Implant Right: Knee [employer] 01/16/202257-0870-458- 12 / NA / [id number] Cmpt Ptlr 32mm Nxgn Alply Rpl [id number] + [id number] + [id number] - Sna - [id number] Implanted:Qty : 1 on 11/16/2018 by Noé Rojas Jr., DO at [facility] Orthopedic Implant Right: Knee [employer] 03/19/202687-2981-105- 32 / NA / [id number] Plt Tib [id number] Nxgn Kn Cmnt Rpl [id number] + [id number] - Sna - [id number] Implanted:Qty : 1 on 11/16/2018 by Noé Rojas Jr., DO at [facility] Plate Right: Knee [employer] 07/19/202895-3726-088- 01 / NA / [id number] Explanted Type Area Furnace Utility Operator Device Identifier Shelf Expiration Date Model / Serial / Lot Scr Gd 48mm Qd-Spr Hex Hd Mis - Sna - [id number] Explanted:Qty: 1 on 11/16/2018 by Noé Rojas Jr., DO at [facility] Screw Right: Knee [employer] 04/18/20285983- 0-48 / NA / [id number] Scr Gd 48mm Qd-Spr Hex Hd Mis - Sna - [id number] Explanted:Qty: 1 on 11/16/2018 by Noé Rojas Jr., DO at [facility] Screw Right: Knee [employer] 03/19/20285983- 0-48 / NA / [id number] Scr Bn Jordan 35mm 6.5mm Hip St Rpl [id number] + [id number] + 32 - Sna - [id number] Explanted:Qty: 2 on 11/16/2018 by Noé Rojas Jr., DO at [facility] Screw Right: Knee [employer] 08/19/2028 [id number] 5-35 / NA / [id number] Insurance ANTH Advance Directives * Full Code (Latest Code Status on File) Date Activated Date Inactivated Comments 11/16/2018 4:07 PM 11/18/2018 5:02 PM Care Teams Surgical Orderly Relationship Specialty Start Date End Date Art López MD [address] [facility], [facility] [address] [place] [phone] PCP - General Internal Medicine 10/27/18
--- OUTSIDE RECORDS SUMMARY | 2025-02-20 14:42 | XMS_ITS | Encounter Summary ---
Author Organization [facility] Address [address] [place] [address] Care Team Providers Care Dietitian Chief Name Role Phone Art López MD Primary Care Provider [phone] Art López MD Unavailable [phone] Encounter Details Date Type Department Care Team ([facility] Contact Info) Description 02/20/2025 Bamboo flowsheet [facility] [place] [facility] [address] [place] [phone] Art López MD [address] [place], [place] [id number] Social History Tobacco Use Types Packs/Day Years [...] Upcoming Encounters Date Type Department Care Team ([facility] Contact Info) Description 03/06/2025 1:00 PM EDT Clinical Support [facility] [place] [facility] [address] [place] [phone] Aide Arita, [facility] [address] [place] [address] 03/08/2025 1:10 PM EDT Office Visit [facility] [place] [facility] [address] [place] [phone] Svetlana De Luna MD [address] [place] [address] 04/03/2025 11:30 AM EDT Office Visit [facility] [place] [facility] [address] [place] [phone] Art López MD [address] [place] [address] documented as of this encounter Visit Diagnoses Not on filedocumented in this encounter Care Teams Dietitian Chief Relationship Specialty Start Date End Date Art López MD [address] [facility] [address] [place] [address] PCP - General Internal Medicine 02/18/23 Art López MD [address] [facility] [address] [place] [address] PCP - Clemencia SHRESTHA 03/20/23 documented as of this encounter
--- OUTSIDE RECORDS SUMMARY | 2025-02-20 14:42 | XMS_ITS | Clinical Summary ---
Author Organization [facility] Healthcare Address [address] [place] [address] Care Team Providers Care Certified Physical Therapist Assistant Name Role Phone Art López MD Primary Care Provider [phone] Art López MD Unavailable [phone] Allergies Active Allergy Reactions Criticality Noted Date Comments Gabapentin Unknown 04/29/2023 Metformin Hcl 04/29/2023 Other Reaction(s): Nightmares Ropinirole 04/29/2023 Other Reaction(s): Unknown Medications Blood Glucose Monitoring Suppl (ONE TOUCH ULTRA 2) w/Device kit USE TO TEST ONCE DAILY 01/25/20 22 Active Lancets (BirdbackTouch Delica Plus Vaofms32P) misc DIRECTED DAILY 30 DAYS 01/25/20 22 Active Multiple Vitamin (Multivitamin Adult) tablet as directed Orally Active cholecalciferol (Vitamin D-3) 25 MCG (1000 UT) tablet Take 1,000 Units by mouth 1 (one) time each day at the same time. 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 (HCC) TAKE 1 TABLET BY MOUTH EVERY DAY 100 tablet 3 04/15/20 23 Active famotidine (Pepcid) 20 MG tabletIndication s:Gastroesophage al reflux disease, unspecified whether esophagitis present TAKE 1 TABLET (20 MG) BY MOUTH IN THE MORNING AND BEFORE BEDTIME 180 tablet 11 05/26/20 23 Active OneTouch Ultra test stripIndications :Type 2 diabetes mellitus without complication, without long-term current use of insulin ([facility]) USE TO TEST ONCE DAILY 100 strip 2 08/31/19 24 Active insulin pen needle (BD Pen Needle Ermelinda U/F) 32G x 4 mm miscIndications: Type 2 diabetes mellitus with hyperglycemia, with long-term current use of insulin ([facility]) USE TO INJECT TWICE A DAY 200 each 3 09/30/19 24 Active omeprazole (PriLOSEC) [address] capsuleIndicatio ns:Gastro-esopha geal reflux disease without esophagitis TAKE 1 CAPSULE BY MOUTH 30 MINUTES BEFORE MORNING MEAL 100 capsule 3 11/09/19 24 Active atorvastatin (Lipitor) 40 MG tabletIndication s:Hypertension, unspecified type TAKE 1 TABLET BY MOUTH EVERY DAY FOR 100 DAYS 100 tablet 4 02/29/20 24 Active metoprolol succinate XL (Toprol-XL) 50 MG 24 hr tabletIndication s:Benign essential hypertension TAKE 1 TABLET BY MOUTH EVERY DAY 100 tablet 3 03/16/20 24 Active Olmesartan-amLOD IPine-HCTZ 40-5-25 MG tabletIndication s:Hypertension, unspecified type TAKE 1 TABLET BY MOUTH EVERY DAY 100 tablet 3 06/22/20 24 Active empagliflozin (Jardiance) 25 MGIndications:Ty pe 2 diabetes mellitus without complication, unspecified whether snf insulin use ([facility]) TAKE 1 TABLET BY MOUTH EVERY DAY 100 tablet 3 06/23/20 24 Active insulin glargine (Toujeo SoloStar) 300 UNIT/ML injectionIndicat ions:Type 2 diabetes mellitus without complication, without long-term current use of insulin ([facility]) INJECT 36 UNITS SUBCUTANEOUSLY ONCE DAILY AT THE SAME TIME 9 mL 12/14/19 25 Active ketoconazole (NIZOral) 200 MG tabletIndication s:Tinea corporis Take 1 tablet (200 mg) by mouth Daily 7 tablet 3 12/30/19 25 025 Active Tirzepatide (Mounjaro) 7.5 MG/0.5ML solution auto-injectorInd ications:Type 2 diabetes mellitus with hyperglycemia, with long-term current use of insulin ([facility]) Inject 7.5 mg under the skin 1 (one) time per week 2 mL 02/02/20 25 Active Tirzepatide (Mounjaro) 7.5 MG/0.5ML solution pen-injectorIndi cations:Type 2 diabetes mellitus with hyperglycemia, with long-term current use of insulin ([facility]) Inject 7.5 mg under the skin 1 (one) time per week 2 mL 11 04/18/20 24 025 Discontin ued(Reord er) Active Problems Problem Noted Date Diagnosed Date Diabetic polyneuropathy asso ciated with type 2 diabetes mellitus 04/18/2024 Type 2 diabetes mellitus wit h hyperglycemia, with long-term current use of insulin 02/17/2024 Class 2 obesity without seri ous comorbidity with body mass index (BMI) of 39.0 to 39.9 in adult 02/17/2024 Body mass index (BMI) 40.0-44.9, adult Type 2 diabetes mellitus with other skin ulcer ( CODE) 02/17/2024 Non-pressure chronic ulcer o f unspecified part of unspecified lower leg with unspecified severity 02/17/2024 Venous stasis ulcers 11/27/2023 Elevated liver enzymes 08/26/2023 Hypercalcemia 08/26/2023 Abnormal mammogram of right breast 01/06/2023 Benign essential hypertension 01/06/2023 Cerebral infarction 01/06/2023 Diverticulitis 01/06/2023 Edema 01/06/2023 Gastroesophageal reflux disease 01/06/2023 Hammer toe 01/06/2023 History of hysterectomy 01/06/2023 History of total knee replacement 01/06/2023 Hyperlipidemia 01/06/2023 Irritable bowel syndrome 01/06/2023 Lesion of lateral popliteal nerve, left lower li mb 01/06/2023 Primary osteoarthritis of both hips 01/06/2023 Primary osteoarthritis of right knee 01/06/2023 Venous insufficiency (chronic) (peripheral) 12/19 Hepatic steatosis 11/13/2020 Abnormal EKG 11/15/2018 Resolved Problems Problem Noted Date Diagnosed Date Resolved Date Diabetic neuropathy 01/06/2023 04/18/20 24 Hypertension 01/06/2023 08/25/2023 Encounters Date Type Department Care Team Description 02/20/2025 1:15 PM EDT [facility] [place] [facility] [address] [place] [address] Art López MD Acute intractable headache, unspecified headache type (Primary Dx); Chest discomfort; Type 2 diabetes mellitus with hyperglycemia, with long-term current use of insulin (HCC); Diabetic polyneuropathy associated with type 2 diabetes mellitus (HCC); Hepatic steatosis 02/20/2025 Bamboo flowsheet [facility] [place] [facility] [address] [facility] [address] [place] [address] Art López MD 02/20/2025 Travel 02/01/2025 Telephone [facility] [place] [place] 112 [facility] [address] [place] [address] Art López MD 01/24/2025 Abstract [facility] [place] [facility] 112 [facility] [address] [place] [address] Art López MD 01/10/2025 Clinisync Result Encounter [facility] External Department Unsolicited Art López MD 12/30/2024 Abstract [facility] [place] [facility] 112 [facility] [address] [place] [address] Art López MD 12/29/2024 11:00 AM EDT Office Visit [facility] [place] [facility] 112 [facility] [address] [place] [address] Art López MD Routine general medical examination at health care facility (Primary Dx); ACP (advance care planning); Encounter for screening mammogram for breast cancer; Benign essential hypertension ; Hepatic steatosis; Type 2 diabetes mellitus with hyperglycemia, with long-term current use of insulin (HCC); Mixed hyperlipidemia ; Elevated liver enzymes; Class 2 obesity without serious comorbidity with body mass index (BMI) of 39.0 to 39.9 in adult, unspecified obesity type; Major depressive disorder, single episode, moderate (HCC); Type 2 diabetes mellitus with diabetic peripheral angiopathy without gangrene (HCC); Varicose veins of unspecified lower extremity with ulcer of unspecified site (CODE) ([facility]); Morbid (severe) obesity due to excess calories ([facility]); Sciatica of left side; Tinea corporis; Tinnitus of both ears 12/29/2024 Bamboo flowsheet [facility] [place] [facility] [address] [facility] [address] [place] [address] Art López MD 12/29/2024 Travel 12/10/2024 Refill [facility] [place] [facility] 112 [facility] [address] [place] [phone] Art López MD Type 2 diabetes mellitus without complication, without long-term current use of insulin (HCC) from Last 3 Months Immunizations Immunization Administration Dates Next Due Td (adult), 5 Lf tetanus tox oid, preservative free, adsorbed 02/21/2018 Family History Medical History Relation Name Comments Diabetes Father Heart disease Father Hypertension Father Heart disease Mother Hypertension Mother Stroke Mother Relation Name Status Comments Father Mother Social History Tobacco Use Types Packs/Day Years [...] Mass Index 39.47 02/20/2025 1:21 PM EDT Plan of Treatment Upcoming Encounters Date Type Department Care Team (Late st Contact Info) Description 03/06/2025 1:00 PM EDT Clinical Support [facility] [place] [facility] [address] [place] [address] [place] [phone] Aide Arita, [facility] [address] [place] [address] 03/08/2025 1:10 PM EDT Office Visit [facility] [place] [facility] [address] [place] [address] [place] [phone] Svetlana De Luna MD 112 [facility] [address] [place] [address] 04/03/2025 11:30 AM EDT [facility] 112 [facility] [place] [address] [place] [phone] Art López MD 112 [facility] [address] [place] [phone] Health Maintenance Due Date Last Done Comments CT Colonography 1960 FIT-DNA 1960 FIT 1960 FOBT 1960 Sigmoidoscopy 1960 Pneumococcal Vaccine: 65+ Ye ars (1 of 2 - PCV) 1977 Influenza Vaccine (#1) 2025 Diabetes: Hemoglobin A1C 03/31/2025 025, 04/18/2024, 02/17/2024, Additional history exists Medicare Annual Wellness (AWV) 12/29/2025 12/29/2024 , 11/27/2023 Diabetes: Urine Protein Screening 01/04/2026 01/04/2025, 02/17/2024, 04/30/2023, Additional history exists Mammogram 01/10/2026 01/10/2025, 08/20, 02/17/2022, Additional history exists Colonoscopy 12/11/2026 12/11/2016 Colorectal Cancer Screening 12/11/2026 Diabetes: Retinopathy Screening 01/23/2027 , 01/21/2022 Procedures Procedure Name Priority Date/Time Associated Diagnosis Comments DIABETIC RETINOPATHY SCREENING - OU - BOTH EYES Routine 01/23/2025 MM TOMOSYNTHESIS SCREENING BI 01/10/2025 1:33 PM EDT TSH W/REFLEX TO FT4 Routine 01/04/2025 9 :38 AM EDT Type 2 diabetes mellitus with hyperglycemia, with long-term current use of insulin (HCC) Class 2 obesity without serious comorbidity with body mass index (BMI) of 39.0 to 39.9 in adult, unspecified obesity type COMPREHENSIVE METABOLIC PANEL Routine 01/04/2025 9:38 AM EDT Benign essential hypertension Hepatic steatosis Elevated liver enzymes LIPID PANEL Routine 01/04/2025 9:38 AM EDT Elevated liver enzymes CBC (INCLUDES DIFF/PLT) Routine 01/04/2025 9:38 AM EDT Benign essential hypertension Hepatic steatosis Elevated liver enzymes MICROALBUMIN / CREATININE URINE RATIO Routine 01/04/2025 9:38 AM EDT Type 2 diabetes mellitus with hyperglycemia, with long-term current use of insulin (HCC) POCT GLYCATED HEMOGLOBIN, TOTAL Routine 12/29/2024 12:00 PM EDT Type 2 diabetes mellitus with hyperglycemia, with long-term current use of insulin (HCC) COLONOSCOPY Routine 12/11/2016 12:00 PM EDT from Last 3 Months or Most Recently Relevant to Health Maintenance Results * Diabetic Retinopathy Screening - OU - Both Eyes (01/23/2025) RESULTS ndr Anatomical Region Laterality Modality Head Other 01/23/2025 Art López MD OPHTH PHOTOGRAPHY Final Result * MM TOMOSYNTHESIS SCREENING BI (01/10/2025 1:33 PM EDT) Anatomical Region Laterality Modality Other 01/10/2025 1:33 PM EDT Narrative 01/10/2025 1:35 PM EDT [address] [address] Mammography Report Signed Patient: АНДРЕЙ OSBORNE MR#: [id number] : 1960 Acct:[id number] Age/Sex: 64 / F ADM Date: 01/10/25 Loc: MAMMO Attending Dr: ART LÓPEZ Ordering Physician: ART LÓPEZ Results: Date of Service: 01/10/25 Follow Up: Procedure(s): MM tomosynthesis screening BI Accession Number(s): [id number] cc: AJAYKAYLAART Patient Name: АНДРЕЙ OSBORNE MR#: [id number] : 1960 Exam Date: 01/10/2025 Ordering Doctor: DR ART LÓPEZ M.D. RADIOLOGY REPORT PROCEDURE: MM TOMOSYNTHESIS SCREENING BI COMPARISON: MM TOMOSYNTHESIS SCREENING BI, 09/01/2023. MG MAMM SCREEN 3D ALEXA CAD, 02/17/2022. MG MAMM SCREEN ALEXA W CAD, 04/04/2020. INDICATIONS: Screening Calculator Name NCI Breast Cancer Risk Assessment Tool 5 Year Breast Cancer Risk 1.70% Lifetime Breast Cancer Risk 6.10% Personal Breast Cancer No Personal Ovarian Cancer No Treatments None Family Cancers Mother with liver cancer at age 82. LOCATION: [facility] BREAST COMPOSITION: There are scattered areas of fibroglandular density. FINDINGS: RIGHT BREAST: No significant suspicious finding. Benign-appearing lymph nodes are present. Similar focal asymmetries are present. Benign-appearing calcifications are present. LEFT BREAST: No significant suspicious finding. Benign-appearing lymph nodes are present. Similar focal asymmetries are present. Benign-appearing calcifications are present. DIAGNOSTIC CATEGORY 2--BENIGN FINDING: RECOMMENDATIONS: ROUTINE MAMMOGRAM AND CLINICAL EVALUATION IN 12 MONTHS. PLEASE NOTE: A NORMAL MAMMOGRAM DOES NOT EXCLUDE THE POSSIBILITY OF BREAST CANCER. A CLINICALLY SUSPICIOUS PALPABLE LUMP SHOULD BE BIOPSIED. Dictated by: Ramsey Alaniz MD on 01/10/2025 at 13:29 Approved by: Ramsey Alaniz MD on 01/10/2025 at 13:33 Dictated By: Ramsey Alaniz M.D. Signed By: 01/10/25 1335 DD/ 133 TD/TT: Chemistry Teacher: Procedure Note Radiology, Radiologist, - 01/10/2025 [place] [address] Mammography Report Signed Patient: АНДРЕЙ OSBORNE AMR#: [id number] : 8Acct:[id number] Age/Sex: 64 / FADM Date: 01/10/25 Loc: MAMMO Attending Dr: ART LÓPEZ Ordering Physician: ART LÓPEZResults: Date of Service: 01/10/25Follow Up: Procedure(s): MM tomosynthesis screening BI Accession Number(s): [id number] cc: AJAYART Patient Name: АНДРЕЙ OSBOREN MR#: [id number] : 1960 Exam Date: 01/10/2025 Ordering Doctor: DR ART LÓPEZ M.D. RADIOLOGY REPORT PROCEDURE: MM TOMOSYNTHESIS SCREENING BI COMPARISON: MM TOMOSYNTHESIS SCREENING BI, 09/01/2023. MG MAMM [id number] ALEXA CAD, 02/17/2022. MG MAMM SCREEN ALEXA W CAD, 04/04/2020. INDICATIONS: Screening Calculator Name NCI Breast Cancer Risk Assessment Tool 5 Year Breast Cancer Risk 1.70% Lifetime Breast Cancer Risk 6.10% Personal Breast Cancer No Personal Ovarian Cancer No Treatments None Family Cancers Mother with liver cancer at age 82. LOCATION: [facility] BREAST COMPOSITION: There are scattered areas of fibroglandulardensity. FINDINGS: RIGHT BREAST: No significant suspicious finding. Benign-appearing lymph nodes are present. Similar focal asymmetries are present.Benign-appearing calcifications are present. LEFT BREAST: No significant suspicious finding. Benign-appearing lymphnodes are present. Similar focal asymmetries are present. Benign-appearing calcifications are present. DIAGNOSTIC CATEGORY 2--BENIGN FINDING: RECOMMENDATIONS: ROUTINE MAMMOGRAM AND CLINICAL EVALUATION IN 12 MONTHS. PLEASE NOTE: A NORMAL MAMMOGRAM DOES NOT EXCLUDE THE POSSIBILITY OFBREAST CANCER. A CLINICALLY SUSPICIOUS PALPABLE LUMP SHOULD BE BIOPSIED. Dictated by: Ramsey Alaniz MD on 01/10/2025 at 13:29 Approved by: Ramsey Alaniz MD on 01/10/2025 at 13:33 Dictated By: Ramsey Alaniz M.D. Signed By:01/10/25 1331 DD/ 32 TD/TT: Chemistry Teacher: us Art López MD [facility] Final Result * TSH W/REFLEX TO FT4 (01/04/2025 9:38 AM EDT) TSH W/REFLEX TO FT4 2.37 0.40 - 4.50 mIU/L [facility] 01/04/2025 9:38 AM EDT 01/04/2025 9:39 AM EDT Narrative [facility] - 01/05/2025 4:23 PM EDT FASTING:YES FASTING: YES Resulting Agency Comment Performing Organization Information Site ID: QPT Name: [facility] Address: [address] [place] [address], [address] [place] [phone] Director: Adrien Abad MD us Art López MD LAB BLOOD ORDERABLES Final Res ult Performing Organization Address [facility] de Phone Number [facility] * Microalbumin / creatinine urine ratio (01/04/2025 9:38 AM EDT) CREATININE, RANDOM URINE 54 20 - 275 mg/dL [facility] ALBUMIN, URINE <0.2 See Note: mg/dL [facility] Comment: Reference Range: Reference Range Not established ALBUMIN/CREATININE RATIO, RANDOM URINE NOTE <30 mg/g creat [facility] Comment: NOTE: The urine albumin value is [...] patient to be within a diagnostic category. Urine Urine specimen obtained by clean catch procedure / Unknown 01/04/2025 9:38 AM EDT 01/04/2025 9:39 AM EDT Narrative [facility] - 01/05/2025 4:23 PM EDT FASTING:YES FASTING: YES Resulting Agency Comment Performing Organization Information Site ID: QPT Name: [facility] Address: [address] [place] [address], [address] [place] [phone] Director: Adrien Abad MD us Art López MD LAB URINE ORDERABLES Final Res ult Performing Organization Address [facility] de Phone Number [facility] * (ABNORMAL) CBC and differential (01/04/2025 9:38 AM EDT) WHITE BLOOD CELL COUNT 5.4 3.8 - 10.8 Thousand/u L [facility] RED BLOOD CELL COUNT 4.23 3.80 - 5.10 Million/uL [facility] HEMOGLOBIN 14.4 11.7 - 15.5 g/dL [facility] HEMATOCRIT 44.2 35.0 - 45.0 % [facility] MCV 104.5(H) 80.0 - 100.0 fL [facility] MCH 34.0(H) 27.0 - 33.0 pg [facility] MCHC 32.6 32.0 - 36.0 g/dL [facility] Comment: For adults, a slight decrease in the calculated MCHC value (in the range of 30 to 32 g/dL) is most likely not clinically significant; however, it should be interpreted with caution in correlation with other red cell parameters and the patient's clinical condition. RDW 12.2 11.0 - 15.0 % [facility] PLATELET COUNT 174 140 - 400 Thousand/u L [facility] MPV 9.7 7.5 - 12.5 fL [facility] ABSOLUTE NEUTROPHILS 2,608 1,500 - 7,800 cells/uL [facility] ABSOLUTE LYMPHOCYTES 1,825 850 - 3,900 cells/uL [facility] ABSOLUTE MONOCYTES 697 200 - 950 cells/uL [facility] ABSOLUTE EOSINOPHILS 238 15 - 500 cells/uL [facility] ABSOLUTE BASOPHILS 32 0 - 200 cells/uL [facility] NEUTROPHILS 48.3 % [facility] LYMPHOCYTES 33.8 % [facility] MONOCYTES 12.9 % [facility] EOSINOPHILS 4.4 % [facility] BASOPHILS 0.6 % [facility] Blood Venous blood specimen / Unknown 01/04/2025 9:38 AM EDT 01/04/2025 9:39 AM EDT Narrative [facility] - 01/05/2025 4:23 PM EDT FASTING:YES FASTING: YES Resulting Agency Comment Performing Organization Information Site ID: QPT Name: [facility] Address: [address] [place] [address], [address] [place] [place] [phone] Director: Adrien Abad MD us Art López MD LAB BLOOD ORDERABLES Final Res ult [facility] * (ABNORMAL) Lipid panel (01/04/2025 9:38 AM EDT) CHOLESTEROL, TOTAL 144 <200 mg/dL [facility] HDL CHOLESTEROL 41(L) > OR = 50 mg/dL [facility] TRIGLYCERIDES 147 <150 mg/dL [facility] LDL CHOLESTEROL 79 mg/dL (calc) [facility] Comment: Reference range: <100 Desirable range <100 mg/dL for primary prevention; <70 mg/dL for patients with CHD or diabetic patients with > or = 2 CHD risk factors. LDL-C is now calculated using the Bria calculation, which is a validated novel method providing better accuracy than the Friedewald equation in the estimation of LDL-C. Johnnie REYNOSO et al. JEAN-PIERRE. 2013;310(19): 2656-8598 (http://education.[employer]/faq/JEM981) CHOL/HDLC RATIO 3.5 <5.0 (calc) [facility] NON HDL CHOLESTEROL 103 <130 mg/dL (calc) [facility] Comment: For patients with diabetes plus 1 major ASCVD risk factor, treating to a non-HDL-C goal of <100 mg/dL (LDL-C of <70 mg/dL) is considered a therapeutic option. Blood Venous blood specimen / Unknown 01/04/2025 9:38 AM EDT 01/04/2025 9:39 AM EDT Narrative [facility] - 01/05/2025 4:23 PM EDT FASTING:YES FASTING: YES Resulting Agency Comment Performing Organization Information Site ID: QPT Name: [facility] Address: [address] [place] [address], [address] [place] [place] [phone] Director: Adrien Abad MD us Art López MD LAB BLOOD ORDERABLES Final Res ult [facility] * (ABNORMAL) Comprehensive metabolic panel (01/04/2025 9:38 AM EDT) Glucose 155(H) 65 - 99 mg/dL [facility] Comment: Fasting reference interval For someone without known diabetes, a glucose value >125 mg/dL indicates that they may have diabetes and this should be confirmed with a follow-up test. BUN 25 7 - 25 mg/dL [facility] Creatinine 0.76 0.50 - 1.05 mg/dL [facility] EGFR 86 > OR = 60 mL/min/1. 73m2 [facility] BUN/CREATININE RATIO SEE NOTE: 6 - 22 (calc) [facility] Comment: Not Reported: BUN and Creatinine are within reference range. Sodium 138 135 - 146 mmol/L [facility] Potassium, Bld 4.0 3.5 - 5.3 mmol/L [facility] Chloride 99 98 - 110 mmol/L [facility] Carbon Dioxide 29 20 - 32 mmol/L [facility] Calcium 11.4(H) 8.6 - 10.4 mg/dL [facility] PROTEIN, TOTAL 7.8 6.1 - 8.1 g/dL [facility] ALBUMIN 4.8 3.6 - 5.1 g/dL [facility] GLOBULIN 3.0 1.9 - 3.7 g/dL (calc) [facility] ALBUMIN/GLOBULIN RATIO 1.6 1.0 - 2.5 (calc) [facility] BILIRUBIN, TOTAL 0.6 0.2 - 1.2 mg/dL [facility] ALKALINE PHOSPHATASE 81 37 - 153 U/L [facility] AST 42(H) 10 - 35 U/L [facility] ALT 54(H) 6 - 29 U/L [facility] Blood Venous blood specimen / Unknown 01/04/2025 9:38 AM EDT 01/04/2025 9:39 AM EDT Narrative [facility] - 01/05/2025 4:23 PM EDT FASTING:YES FASTING: YES Resulting Agency Comment Performing Organization Information Site ID: QPT Name: [facility] Address: [address] [place] [phone] Director: Adrien Abad MD us Art López MD LAB BLOOD ORDERABLES Final Res ult [facility] * POCT Glycated hemoglobin, total (12/29/2024 12:00 PM EDT) Hemoglobin A1C 6.2 Blood 12/29/2024 12:0 0 PM EDT us Art López MD POINT OF CARE TEST ENTER/EDIT ORDERABLES Final Result * Colonoscopy (12/11/2016 12:00 PM EDT) Anatomical Region Laterality Modality Endoscopy 12/11/2016 12:0 0 PM EDT Narrative 12/11/2016 12:00 PM EDT PERFORMED AT [facility] LOCATION:[id number] DIVERTICULOSIS Procedure Note CONVERSION, GENERIC - 12/04/2022 PERFORMED AT [facility] LOCATION:[id number] DIVERTICULOSIS Art López MD ENDOSCOPY PROCEDURE ORDERABLES Final Result from Last 3 Months or Most Recently Relevant to Health Maintenance Insurance [place]ICAID [place] MEDICARE ADVANTAGE Care Teams Certified Physical Therapist Assistant Relationship Specialty Start Date End Date Art López MD [address] [place] [address] [place] [address] PCP - General Internal Medicine 02/18/23 Art López MD [address] [place] [address] [place] [address] PCP - Clemencia [place] 03/20/23
--- OUTSIDE RECORDS SUMMARY | 2025-02-20 14:42 | XMS_ITS | Encounter Summary ---
Author Organization [facility] Address [address] [place] [address] Care Team Providers Care Pharmacy Scheduler Name Role Phone Art López MD Primary Care Provider [phone] Art López MD Unavailable [phone] Encounter Details Date Type Department Care Team ([facility] Contact Info) Description 01/24/2025 Abstract [facility] [place] [facility] [address] [facility] [address] [place] [phone] Art López MD [address] [facility] 110 [place], [place] [phone] Social History Tobacco Use Types Packs/Day Years [...] Son Audiology [address] [place] [address] [place] [phone] Aide Arita, [facility] [address] [place] [address] 03/08/2025 1:10 PM EDT Office Visit [facility] Otol[facility] [address] [place] [phone] Svetlana De Luna MD [address] [facility] [address] [place] [address] 04/03/2025 11:30 AM EDT Office Visit [facility] [place] [facility] [address] [facility] [address] [place] [phone] Art López MD [address] [facility] [address] [place] [address] documented as of this encounter Visit Diagnoses Not on filedocumented in this encounter Care Teams Pharmacy Scheduler Relationship Specialty Start Date End Date Art López MD [address] [facility] [address] [place] [address] PCP - General Internal Medicine 02/18/23 Art López MD [address] [facility] [address] [place] [address] PCP - Clemencia SHRESTHA 03/20/23 documented as of this encounter
--- OUTSIDE RECORDS SUMMARY | 2025-02-20 14:42 | XMS_ITS | Encounter Summary ---
Author Organization [facility] Address [address] [place] [address] Care Team Providers Care Instrument Fitter Name Role Phone Art López MD Primary Care Provider [phone] Art López MD Unavailable [phone] Encounter Details Date Type Department Care Team ([facility] Contact Info) Description 03/09/2024 Orders Only [facility] [place] [facility] [address] [place] [address] [place] [phone] Gill Restrepo LPN [address] [place] [address] Estrogen deficiency Social History Tobacco Use Types Packs/Day Years [...] Support [facility] [place] [facility] [address] [place] [address] Aide Arita, [facility] [address] [place], [place] [id number] 03/08/2025 1:10 PM EDT Office Visit [facility] [place] [facility] [address] [place] [address] Svetlana De Luna MD [address] [facility] [address] [place] [address] 04/03/2025 11:30 AM EDT Office Visit [facility] [place] Quezada Raissa [address] [facility] [address] [place] [phone] Art López MD [address] [facility] [address] [place] [address] documented as of this encounter Visit Diagnoses Diagnosis Estrogen deficiency Other ovarian failure documented in this encounter Care Teams Instrument Fitter Relationship Specialty Start Date End Date Art López MD [address] [facility] [address] [place] [address] PCP - General Internal Medicine 02/18/23 Art López MD [address] [facility] [address] [place] [address] PCP - Clemencia SHRESTHA 03/20/23 documented as of this encounter
--- OUTSIDE RECORDS SUMMARY | 2025-02-20 14:42 | XMS_ITS | Encounter Summary ---
Author Organization [facility] Address [address] [facility] [place] [address] Care Team Providers Care Metal Inspector Name Role Phone Art López MD Primary Care Provider [phone] Art López MD Unavailable [phone] Encounter Details Date Type Department Care Team (Late Contact Info) Description 01/05/2024 Clinisync Result Encounter [facility] External Department Unsolicited Art López MD [address] [place] [address] [place], [place] [id number] Social History Tobacco Use Types Packs/Day Years [...] [place] [facility] [address] [place] [place] [address] Aide Arita, [facility] [address] [place] [address] 03/08/2025 1:10 PM EDT Office Visit [facility] [place] [facility] [address] [place] [place] [address] Svetlana De Luna MD 112 [facility] [address] [place] [address] 04/03/2025 11:30 AM EDT Office Visit [facility] [place] Haji 112 [facility] [address] [place] [phone] Art López MD 112 [facility] [address] [place] [address] documented as of this encounter Procedures Procedure Name Priority Date/Time Associated Diagnosis Comments XR DEXA AXIAL SKELETON 01/05/2024 10:09 AM EDT documented in this encounter Results * XR DEXA AXIAL SKELETON (01/05/2024 10:09 AM EDT) Anatomical Region Laterality Modality Other 01/05/2024 10:0 9 AM EDT Narrative 01/05/2024 10:11 AM EDT [address] [address] XRay Report Signed Patient: АНДРЕЙ OSBORNE MR#: [id number] : 1960 Acct:[id number] Age/Sex: 63 / F ADM Date: 01/04/24 Loc: [facility] Attending Dr: ART LÓPEZ Ordering Physician: ART LÓPEZ Date of Service: 01/04/24 Procedure(s): XR DEXA axial skeleton Accession Number(s): [id number] cc: ART LÓPEZ [address] [address] Patient Name: АНДРЕЙ OSBORNE MRN: [id number] date: 1960 Sex: F Assigned Patient Location: [facility] Current Patient Location: Accession/Order Number: [id number] Exam Date: 01/04/2024 13:00 Report Date: 01/05/2024 10:09 At the request of: ART LÓPEZ Procedure: XR DEXA axial skeleton EXAMINATION: XR DEXA axial skeleton HISTORY: Estrogen Deficiency E28.39 COMPARISON: No relevant comparison available. TECHNIQUE: Dual-energy X-ray absorptiometry (DXA) was performed. FINDINGS: SPINE ANALYSIS: Average bone mineral density is 1.167 g/cm2. T-score (standard deviation relative to young adult mean): -0.1 . HIP ANALYSIS: Lowest bone mineral density is within the right femoral neck, 0.962 g/cm2. T-score (standard deviation relative to young adult mean): -0.5 . XR/XR DEXA axial skeleton IMPRESSION: [employer] Classification: Normal - Low Fracture Risk FRAX: Electronically authenticated by: JUDY PERDUE Date: 01/05/2024 10:09 Dictated By: Judy Perdue M.D. Signed By: 01/05/24 1011 DD/ 1009 TD/TT: Environmental Monitoring Specialist: Procedure Note Radiology, Radiologist, MD - 01/05/2024 [place] [address] XRay Report Signed Patient: АНДРЕЙ OSBORNE AMR#: [id number] : 1960cct:[id number] Age/Sex: 63 / FADM Date: 01/04/24 Loc: RAD Attending Dr: ART LÓPEZ Ordering Physician: ART LÓPEZ Date of Service: 01/04/24 Procedure(s): XR DEXA axial skeleton Accession Number(s): [id number] cc: ART LÓPEZ [place] [address] Patient Name: АНДРЕЙ OSBORNE MRN: [facility]:[id number] date: 1960 Sex: F Assigned Patient Location: [facility] Current Patient Location: Accession/Order Number: [id number] Exam Date: 01/04/2024 13:00 Report Date: 01/05/2024 10:09 At the request of: ART LÓPEZ Procedure: XR DEXA axial skeleton EXAMINATION: XR DEXA axial skeleton HISTORY: Estrogen Deficiency E28.39 COMPARISON: No relevant comparison available. TECHNIQUE: Dual-energy X-ray absorptiometry (DXA) was performed. FINDINGS: SPINE ANALYSIS: Average bone mineral density is 1.167 g/cm2. T-score (standard deviation relative to young adult mean): -0.1 . HIP ANALYSIS: Lowest bone mineral density is within the right femoral neck, 0.962 g/cm2. T-score (standard deviation relative to young adult mean): -0.5 . XR/XR DEXA axial skeleton IMPRESSION: [employer] Organization Classification: Normal - Low Fracture Risk FRAX: Electronically authenticated by: JUDY PERDUE Date: 01/05/2024 10:09 Dictated By: Judy Perdue M.D. Signed By:01/05/24 1011 DD/ 1009 TD/TT: Environmental Monitoring Specialist: Art López MD [facility] Final Result documented in this encounter Visit Diagnoses Not on filedocumented in this encounter Care Teams Metal Inspector Relationship Specialty Start Date End Date Art López MD [address] [facility] [address] [place] [address] PCP - General Internal Medicine 02/18/23 Art López MD [address] [facility] [address] [place] [address] PCP - Cleemncia SHRESTHA 03/20/23 documented as of this encounter
--- NOTE | 2025-02-20 14:53 | ED.GENADUL1 ---
HPI HPI - General Adult General Chief complaint: Headache Stated complaint: HEADACHE Time Seen by Provider: 02/20/25 14:42 Source: patient Mode of arrival: walk-in Limitations: no limitations History of Present Illness HPI narrative: The patient is 65-year-old female is coming to the ER with a 1 week history at least of headache mostly in frontal and sometimes in the occipital area that started almost more than a week ago on Thursday, the patient mentioned that the headache is associated sometimes with nausea and she noted that she has been tumbling sometimes more over the last 1 week, patient mentioned that she has been alternating Tylenol and ibuprofen although she did not take anything for pain today, presented to her primary care doctor who sent her over to be evaluated Patient mentioned that the pain is 10 out of 10 associated with photosensitivity and some nausea. The patient was able to walk to the ER from her car slowly with no difficulty the patient also mentioned having chronic tremors in her upper extremity that is not new but she mentioned that it is increased over the last few days Related Data Home Medications ?Medication ?Instructions ?Recorded ?Confirmed atorvastatin 40 mg tablet mg 02/20/25 empagliflozin 25 mg tablet mg 02/20/25 (Jardiance) insulin glargine U-300 conc 300 unit subcut 02/20/25 unit/mL (1.5 mL) subcutaneous pen (Toujeo SoloStar U-300 Insulin) metoprolol succinate 50 mg mg PO 02/20/25 tablet,extended release 24 hr olmesartan 40 mg-amlodipine 5 tab PO 02/20/25 mg-hydrochlorothiazide 25 mg tablet tirzepatide 7.5 mg/0.5 mL mg subcut 02/20/25 subcutaneous pen injector (Nate) Allergies Allergy/AdvReac Type Severity Reaction Status Date / Time metformin AdvReac Severe Nightmare Verified 02/20/25 14:39 Opioid HPI Opioid Management Most Recent Opioid Data: Last Pain Scale 7 Today, 14:39 Review of Systems ROS Status of ROS 10 or more systems reviewed and unremarkable except as noted in history and below PFSH PFSH Social History Little interest or pleasure in doing things: not at all Feeling down, depressed, or hopeless: not at all Exam Narrative Exam Narrative: Nurses notes and vital signs reviewed and patient is not hypoxic. General: Well-appearing and in no apparent distress. Skin: Warm, dry, no pallor noted. No rash. Head: Normocephalic, atraumatic. Neck: Supple, non-tender. Eye: Pupils are equal, round and EOMI. No scleral icterus. Ears, Nose, Mouth, and Throat: TM are clear, no nasal mucosal hypertrophy. Oral mucosa is moist, no posterior oropharynx erythema, uvula is mid-line Cardiovascular: Regular Rate and Rhythm without murmur, gallop or rub. Respiratory: No accessory muscle use or respiratory distress. Lungs are clear to auscultation, no wheezing, rales or rhonchi Chest Wall: no tenderness Back: No midline thoracic or lumbar vertebral tenderness. No CVA tenderness Musculoskeletal: Bilateral chronic lymphedema noted GI: Abdomen is soft, non-distended. Normal bowel sounds. No masses appreciated. No tenderness to palpation. No rebound, guarding, or rigidity noted. Neurological: A&O x4. No cranial nerve dysfunction observed. No truncal ataxia. Moves all extremities. Sensation intact. The patient have no acute muscular weakness Psychiatric: Cooperative and interactive. Normal mood and affect. Constitutional Vital Signs, click to edit/add: Last Vital Signs Temp 97.9 F 02/20/25 14:39 Pulse 70 02/20/25 17:40 Resp 18 02/20/25 17:40 BP 127/76 02/20/25 17:30 Pulse Ox 95 02/20/25 17:40 O2 Del Method Room Air 02/20/25 14:39 Course Vital Signs Vital signs: Vital Signs Temperature 97.9 F 02/20/25 14:39 Pulse Rate 79 02/20/25 14:39 Respiratory Rate 16 02/20/25 14:39 Blood Pressure 167/88 H 02/20/25 14:39 Pulse Oximetry 97 02/20/25 14:39 Oxygen Delivery Method Room Air 02/20/25 14:39 Temperature 97.9 F 02/20/25 14:39 Pulse Rate 70 02/20/25 17:40 Respiratory Rate 18 02/20/25 17:40 Blood Pressure 127/76 02/20/25 17:30 Pulse Oximetry 95 02/20/25 17:40 Oxygen Delivery Method Room Air 02/20/25 14:39 Medical Decision Making MDM Narrative Medical decision making narrative: The patient EKG showing sinus rhythm with a heart rate of [address] elevation or depression CT of the head showed no acute pathology CBC and chemistry showed no acute significant pathology and the patient had a CT angio of the head showing no acute pathology as well pt was feeling much better after being treated with Compazine as well as Zofran and she was able to ambulate with no difficulty. Patient did not have any limping at any time or weakness on examination Patient instructed about follow-up with her primary care doctor to make sure that she will be referred to neurology to manage her tremor that she has some Also instructed about decreasing any trigger for migraine including insomnia and lack of sleep The patient is to follow up with primary care physician in next 2-3 days or to return to the emergency department should any of the signs or symptoms worsen or new symptoms develop. The patient agrees with the following Diagnosis and Treatment plan and the patient will be discharged home. Lab Data Labs: Lab Results 02/20/25 02/20/25 02/20/25 Range/Units 15:07 15:48 16:40 WBC 6.5 (4.0-11.0) 10^3/uL RBC 4.34 (4.20-5.40) 10^6/uL Hgb 14.9 (12.0-16.0) g/dL Hct 42.9 (36.0-48.0) % MCV 98.8 (81.0-99.0) fL MCH 34.3 H (26.7-34.0) pg MCHC 34.7 (29.9-35.2) g/dL RDW 12.1 (11.0-15.0) % Plt Count 200 (150-450) 10^3/uL MPV 11.7 (9.5-13.5) fL Neut % (Auto) 50.8 (43.0-75.0) % Lymph % (Auto) 32.2 (20.5-60.0) % Crockett % (Auto) 14.0 H (1.7-12.0) % Eos % (Auto) 2.0 (0.9-7.0) % Baso % (Auto) 0.5 (0.2-2.0) % Neut # (Auto) 3.3 (1.4-6.5) 10^3/uL Lymph # (Auto) 2.1 (1.2-3.8) 10^3/uL Crockett # (Auto) 0.9 H (0.3-0.8) 10^3/uL Eos # (Auto) 0.1 (0.0-0.7) 10^3/uL Baso # (Auto) 0.0 (0.0-0.1) 10^3/uL Abs Immat Gran (auto) 0.03 (0.00-0.03) 10^3/uL Imm/Tot Granulo (auto) 0.5 (0.0-0.5) % PT 11.1 (9.0-11.6) sec INR 1.05 Sodium 136 (136-145) mmol/L Potassium 3.9 (3.5-5.1) mmol/L Chloride 101 (98-107) mmol/L Carbon Dioxide 31.1 (21.0-32.0) mmol/L Anion Gap 7.8 BUN 23.0 H (7.0-18.0) mg/dL Creatinine 0.89 (0.55-1.02) mg/dL Est GFR ( Amer) >60 (>=60 mL/min/1.73m^2) Est GFR (Non-Af Amer) >60 (>=60 mL/min/1.73m^2) BUN/Creatinine Ratio 25.8 Glucose 126 H (74-106) mg/dL Calcium 11.6 H (8.5-10.1) mg/dL Total Bilirubin 0.7 (0.2-1.0) mg/dL AST 41 H (15-37) U/L ALT 80 H (14-59) U/L Alkaline Phosphatase 94 (46-116) U/L Troponin I High Sens 4.8 (4.0-51.3) pg/mL Total Protein 8.1 (6.4-8.2) g/dL Albumin 4.1 (3.4-5.0) g/dL Globulin 4.0 g/dL Albumin/Globulin Ratio 1.0 Urine Color Lt. yellow (YELLOW) Urine Clarity Clear (CLEAR) Urine pH 6.0 (5.0-9.0) Ur Specific Nerinx 1.015 (1.005-1.025) Urine Protein Negative (NEG/TRACE) mg/dL Urine Glucose (UA) >=1000 A (NEGATIVE) mg/dL Urine Ketones Negative (NEGATIVE) mg/dL Urine Occult Blood Negative (NEGATIVE) Urine Nitrite Negative (NEGATIVE) Urine Bilirubin Negative (NEGATIVE) Urine Urobilinogen 0.2 (0.2-1.0) EU/dL Ur Leukocyte Esterase Negative (NEGATIVE) Discharge Plan Discharge Chief Complaint: Headache Clinical Impression: Migraine Patient Disposition: Home, Self-Care Time of Disposition Decision: 18:12 Condition: Good Prescriptions / Home Meds: No Action atorvastatin 40 mg tablet metoprolol succinate 50 mg tablet extended release 24 hr PO arkzjwjgpv-imwebczct-ktbwdbmks 40-5-25 mg tablet PO Jardiance 25 mg tablet insulin glargine U-300 conc [Toujeo SoloStar U-300 Insulin] 300 unit/mL (1.5 mL) insulin pen SUBCUT Mounjaro 7.5 mg/0.5 mL pen injector SUBCUT Print Language: Filipino Instructions: Migraine Headache (ED) Referrals: MONICA MOSS [Primary Care Provider, Internal Medicine] - 1 week
[2025-02-20 15:38] LABS: Hematocrit 42.9 % (36.0-48.0); Hemoglobin 14.9 g/dL (12.0-16.0); Immature Granulocytes Abs Auto 0.03 10^3/uL (0.00-0.03); Immature Granulocytes Pct Auto 0.5 % (0.0-0.5); Lymphocytes Absolute Auto 2.1 10^3/uL (1.2-3.8); Mean Corpuscular HGB Conc 34.7 g/dL (29.9-35.2); Mean Corpuscular Hemoglobin 34.3 pg (26.7-34.0); Mean Corpuscular Volume 98.8 fL (81.0-99.0); Platelet Count 200 10^3/uL (150-450); Red Blood Count 4.34 10^6/uL (4.20-5.40); White Blood Count 6.5 10^3/uL (4.0-11.0)
[2025-02-20] MEDS: PROCHLORPERAZINE 10 MG/2 ML VIAL 5 MG IV (16:10)
[2025-02-20 16:20] LABS: INR 1.05; Prothrombin Time 11.1 sec (9.0-11.6)
[2025-02-20 16:34] LABS: Alanine Aminotransferase 80 U/L (14-59); Albumin Globulin Ratio 1.0; Albumin Level 4.1 g/dL (3.4-5.0); Alkaline Phosphatase 94 U/L (46-116); Anion Gap 7.8; Aspartate Amino Transferase 41 U/L (15-37); Blood Urea Nitrogen 23.0 mg/dL (7.0-18.0); Calcium 11.6 mg/dL (8.5-10.1); Carbon Dioxide 31.1 mmol/L (21.0-32.0); Chloride 101 mmol/L (98-107); Estimated GFR (African America >60 (>=60 mL/min/1.73m^2); Estimated GFR (Non-African Ame >60 (>=60 mL/min/1.73m^2); Globulin 4.0 g/dL; Glucose 126 mg/dL (74-106); Potassium 3.9 mmol/L (3.5-5.1); Sodium 136 mmol/L (136-145); Total Protein 8.1 g/dL (6.4-8.2)
[2025-02-20 16:48] LABS: Glucose Urine UA >=1000 mg/dL (NEGATIVE)
--- NOTE | 2025-02-20 16:53 | CT_ITS ---
The [address] [address] Patient Name: АНДРЕЙ OSBORNE MRN: [id number] date: 1960 Sex: F Assigned Patient Location: ER Current Patient Location: ER Accession/Order Number: [id number] Exam Date: 02/20/2025 17:43 Report Date: 02/20/2025 17:47 At the request of: PEPITO LAURA MD Procedure: CT angio head CT ANGIOGRAM HEAD CLINICAL HISTORY: headache COMPARISON: 02/20/2025 CT head TECHNIQUE: CT angiogram images through the head with coronal sagittal and 3-D reformats.. This CT exam was performed using one or more following dose reduction techniques: Automated exposure control, adjustment of the mA and/or kV according to patient size, or use of iterative reconstruction technique. FINDINGS: Intracranial ICAs are patent. ACAs and MCAs are patent. Vertebral arteries, basilar artery and posterior cerebral arteries are patent. No dural venous sinus thrombosis. No saccular aneurysm. Right-sided posterior communicate artery. Left posterior communicating artery not visualized possibly Hypoplastic or aplastic. CT/CT angio head IMPRESSION: Negative for large vessel occlusion or saccular aneurysm. Impression dictated by: Navdeep Real M.D. 02/20/2025 5:47 PM Dictation Location: [place] [address] Electronically authenticated by: [id number] Y Date: 02/20/2025 17:47
[2025-02-20] MEDS: KETOROLAC TROMETHAMINE 30 MG/ML VIAL 15 MG IVP (18:27)
== END 2025-02-20 18:35 | disposition home or self-care (01) ==
PROVIDERS: Emergency Provider Emergency Medicine; PCP Internal Medicine
DX: G43.909 Migraine, unspecified, not intractable, without status migrainosus (principal); R25.1 Tremor, unspecified
CPT/HCPCS: 36415; 70450; 70496; 80053; 81003; 84484; 85025; 85610; 93005; 96374; 96375; 99285; J0780; J1885; J2405; Q9967